=== PATIENT | male | born 1985 | race Hispanic/Latino ===

== ENCOUNTER 2019-08-05 23:12 | Emergency (ER) | payer SELFPAY | END 2019-08-05 23:53 | disposition left against medical advice (07) | LOC: EDH 23:12 | DX: F31.9 Bipolar disorder, unspecified (principal); Z53.21 Procedure and treatment not carried out due to patient leaving prior to being seen by health care provider; Z72.0 Tobacco use ==

== ENCOUNTER 2019-09-06 00:46 | Emergency (ER) | payer OTHER | END 2019-09-06 01:52 | disposition home or self-care (01) | LOC: EDH 00:46 | DX: F41.9 Anxiety disorder, unspecified (principal); F31.9 Bipolar disorder, unspecified ==

== ENCOUNTER 2019-09-06 22:28 | Emergency (ER) | payer OTHER ==
[2019-09-07] MEDS ORDERED: NEOMY SULF/BACITRA/POLYMYXIN B 1 EACH PACKET TP ONE
[2019-09-07] MEDS ORDERED: KETOROLAC TROMETHAMINE 30MG/ML ONE (00:21)
== END 2019-09-07 00:47 | disposition home or self-care (01) ==
LOC: EDH 22:28
DX: S90.822A Blister (nonthermal), left foot, initial encounter (principal); S90.821A Blister (nonthermal), right foot, initial encounter; F31.9 Bipolar disorder, unspecified; Z72.0 Tobacco use; X58.XXXA Exposure to other specified factors, initial encounter; Y93.01 Activity, walking, marching and hiking; Y92.89 Other specified places as the place of occurrence of the external cause; Y99.8 Other external cause status
CPT/HCPCS: 99282; J1885